=== PATIENT | female | born 1995 | race African-American/Black ===

== ENCOUNTER 2016-09-25 23:56 | Emergency (ER) | payer OTHER ==
[~2016-09-25] VITALS: Ht 170.2 cm; Wt 86.9 kg
[2016-09-25 23:57] VITALS: BP 134/75
[2016-09-26] MEDS ORDERED: PRENTAB40 PO (00:55)
--- NOTE | 2016-09-26 05:20 | REPUSA ---
CLINICAL HISTORY: Vaginal bleeding. TECHNIQUE: Transabdominal ultrasound of the pelvis was performed. FINDINGS: The uterus is anteverted. A pole is identified with crown-rump length of 0.3 cm, which corresponds to a gestational age o f 5 weeks and 4 days. A yolk sac is noted. heart motion is demonstrated, with a rate of 115 beats per minute. KELSEY is estimated at 05/25/17. Both ovaries are identified without adnexal mass or pelvic fluid collection. IMPRESSION: Single live IUP dated at 5 w 4 d. No abnormalities noted.
== END 2016-09-26 06:15 | disposition home or self-care (01) ==
LOC: M ED 23:56
DX: O20.0 Threatened abortion (principal); Z3A.01 Less than 8 weeks gestation of pregnancy

== ENCOUNTER 2016-10-03 17:01 | Emergency (ER) | payer OTHER ==
[~2016-10-03] VITALS: Ht 170.2 cm; Wt 77.3 kg
[~2016-10-03 17:01] MED LIST: PRENTAB40 PO
--- NOTE | 2016-10-03 20:20 | REPUSA ---
Clinical history: vaginal spotting. Findings: Real-time transabdominal and transvaginal ultrasound images of the pelvis were obtained. Th ere is a single intrauterine gestation. The crown rump length measures 0.7 cm. There is no evidence o f a subchorionic hemorrhage. heart rate measures 123 bpm. An anteverted uterus is noted, and de monstrates normal echotexture and echogenicity. The right ovary measures 2.4 x 2.9 x 2.7 cm. The lef t ovary measures 2.5 x 2.8 x 2.7 cm. No adnexal masses are seen. Color Doppler flow is seen within b oth ovaries. There is no evidence of free fluid. Impression: 1. Single live intrauterine measuring 6 weeks 4 days, with estimated due date of April 292017. 2. No other gross abnormalities.
[2016-10-03 21:20] VITALS: BP 128/70
== END 2016-10-03 21:24 | disposition home or self-care (01) ==
LOC: M ED 17:01
DX: O20.9 Hemorrhage in early pregnancy, unspecified (principal); Z3A.01 Less than 8 weeks gestation of pregnancy

== ENCOUNTER 2017-02-20 10:41 | Outpatient (CLI) | payer OTHER ==
[~2017-02-20] VITALS: Ht 170.2 cm; Wt 97.0 kg
[2017-02-20 11:01] VITALS: BP 119/64
--- NOTE | 2017-02-20 11:54 | HPE ---
DATE OF ADMISSION: 02/20/2017 This lady is a 21-year-old 2, para 0, abortio 41, LMP 08/09/2016, EDC 05/16/2017 at 27 and 6 of gestation with no movement for 3 days. Risk factors, she is Rh negative, GBS positive in urine. Gonorrhea her review was negative. Chlamydia was positive. Test of cure is not available and she has chaptering 8 out. PAST HISTORY: April 2015 at 8 weeks, spontaneous . Labs show O negative, HIV negative, hepatitis negative, RPR negative, rubella immune. Varicella immune. Urine was group B streptococcus (GBS) positive. Gonorrhea was negative. Chlamydia was positive. CF declined. EXAMINATION: No distress. Symphysis fundus height is 28, vertex, category 1 with moderate variability and heart rate 140. No decelerations. No contractions. No vaginal loss or bleeding. Temperature is 98.7, pulse 88, respirations 18, and blood pressure is 119/64. Patient is unable to void. She is normocephalic, atraumatic. Neck: Full range of motion. Pupils equal and reactive to light. Distal pulses symmetric. No evidence of deep venous thrombosis (DVT), pulmonary embolus (PE, or superficial phlebitis. No wheezes or rhonchi. Chest is clear bilaterally to bases. No costovertebral angle (CVA) tenderness. Uterus is nontender. Four quadrant bowel sounds are noted. No rashes, lesions, or pruritus. No arthralgia, myalgia. No complaints of cough, wheeze, shortness of breath, or dyspnea on exertion. No chest pain. Not bleeding. Neuro complete. No incontinency, urgency, or frequency. No nausea, vomiting, diarrhea, or constipation. Patient has not done her 28-week labs yet. No [employer] history. PAST MEDICAL: Unremarkable. SURGERY: Unremarkable. No family history. Does not smoke, drink, abuse drugs. She is to a soldier, and there is no domestic violence. In summary, we have a 27 and 6 with decreased movements, confirmed good accelerations on a good strip, with an NST positive. Precautions were given. 28-week labs were emphasized that she should do them, and she responded in the affirmative, and she is discharged to followup in the office in 2-weeks' time. She was discharged undelivered.
== END 2017-02-20 12:05 | disposition home or self-care (01) ==
LOC: M LDO 10:41
PROVIDERS: ATTEND Obstetrics & Gynecology
DX: O36.8120 Decreased fetal movements, second trimester, not applicable or unspecified (principal); Z3A.27 27 weeks gestation of pregnancy; O98.312 Other infections with a predominantly sexual mode of transmission complicating pregnancy, second trimester

== ENCOUNTER 2017-03-20 11:25 | Emergency (ER) | payer OTHER ==
[~2017-03-20] VITALS: Ht 170.2 cm; Wt 99.7 kg
[2017-03-20 11:26] VITALS: BP 132/67
[2017-03-20] MEDS ORDERED: KEFL500C17 PO (13:27)
== END 2017-03-20 13:31 | disposition home or self-care (01) ==
LOC: M ED 11:25
DX: O99.89 Other specified diseases and conditions complicating pregnancy, childbirth and the puerperium (principal); N89.9 Noninflammatory disorder of vagina, unspecified; Z3A.31 31 weeks gestation of pregnancy

== ENCOUNTER 2017-05-20 01:08 | Outpatient (CLI) | payer OTHER | END 2017-05-20 04:00 | disposition home or self-care (01) | LOC: M LDO 01:08 | DX: O47.1 False labor at or after 37 completed weeks of gestation (principal); Z3A.40 40 weeks gestation of pregnancy | CPT/HCPCS: 59025 ==

== ENCOUNTER 2017-05-21 04:58 | Inpatient (IN) | payer OTHER ==
[2017-05-21] MEDS: LR 1,000 ML IV ×2 (05:34→11:24)
[2017-05-21] MEDS: PENICILLIN G POTASSIUM IV 5 MU in D5W MINI-BAG PLUS 100 ML IV (05:34)
[2017-05-21 06:26] LABS: HEMATOCRIT 40.4 % (36.0-47.0); HEMOGLOBIN 13.4 g/dl (12.0-16.0); MEAN CORPUSCULAR HEMOGLOBIN 31.6 pg (27.0-33.0); MEAN CORPUSCULAR HGB CONC 33.2 g/dl (32.0-36.5); MEAN CORPUSCULAR VOLUME 95.3 fl (80.0-96.0); PLATELET COUNT, AUTOMATED 275 10^3/uL (150-450); RED BLOOD COUNT 4.24 10^6/uL (4.00-5.40); RED CELL DISTRIBUTION WIDTH 13.7 % (11.5-14.5); WHITE BLOOD COUNT 11.4 10^3/uL (4.0-10.0)
[2017-05-21] MEDS: OXYTOCIN DRIP 30 UNITS in APPROPRIATE DILUENT 1 EA IV ×3 (06:30→23:29)
[2017-05-21] MEDS: PENICILLIN G POTASSIUM IV 2.5 MU in APPROPRIATE DILUENT 1 EA IV ×3 (10:32→18:23)
[2017-05-21] MEDS: PROMETHAZINE INJ 25 MG/ML VIAL (J2550) IV (17:23)
[2017-05-21] MEDS: BUTORPHANOL 2 MG/ML INJ (J0595) IV (17:25)
[2017-05-21] MEDS: LACTATED RINGER'S 1000 ML IV (19:04)
[2017-05-21] MEDS ORDERED: FENTANYL 2MCG/ML ROPIVACAINE 0.2% IN 0.9% NACL 200ML IVBAG As Ordered (19:15)
[2017-05-21] MEDS ORDERED: EPIDURAL/PCA KEYS XX (20:10)
[2017-05-21] MEDS ORDERED: REFRIGERATOR IV KEYS XX (20:10)
[2017-05-21] MEDS ORDERED: NALOXONE INJ 0.4 MG/1 ML VIAL (J2310) IV (20:10)
[2017-05-21] MEDS ORDERED: ONDANSETRON 4MG/2ML VIAL (J2405) IV ×2 (20:10→23:00)
[2017-05-21] MEDS ORDERED: ePHEDrine SULFATE 25 MG/5 ML(5MG/ML) SYRINGE IV (20:10)
[2017-05-21] MEDS ORDERED: EPIDURAL COMMENT XX (20:10)
[2017-05-21] MEDS: FENTANYL/ROPIVACAINE/NACL BAG 200 ML EPIDURAL (20:10)
[2017-05-21] MEDS ORDERED: diphenhydrAMINE INJ 50MG/ML VIAL (J1200) IV (20:10)
[2017-05-21] MEDS ORDERED: LACTATED RINGER'S 1000 ML IV (20:10)
[2017-05-21] MEDS ORDERED: OXYTOCIN 30 UNITS IN 0.9% NaCl 500ML IV BAG (J2590) As Ordered (22:45)
[2017-05-21] MEDS: miSOPROStol 200 MCG TAB (S0191) PR (23:00)
[2017-05-21] MEDS ORDERED: IBUPROFEN 800 MG TAB PO (23:00)
[2017-05-21] MEDS ORDERED: ANUSOL HC CREAM 30GM TOP (23:00)
[2017-05-21] MEDS ORDERED: DIBUCAINE 1% OINTMENT 30GM TOP (23:00)
[2017-05-21] MEDS ORDERED: DOCUSATE SODIUM 100 MG CAP PO (23:00)
[2017-05-21] MEDS ORDERED: MOM 30ML SUSPENSION UDC PO (23:00)
[2017-05-21] MEDS ORDERED: PROMETHAZINE 25 MG TAB PO (23:00)
[2017-05-22] MEDS: LR 1,000 ML IV ×2 (07:08)
[2017-05-22] MEDS: PENICILLIN G POTASSIUM IV 2.5 MU in APPROPRIATE DILUENT 1 EA IV (07:09)
[2017-05-22] MEDS: PRENATAL VITAMINS CHEWABLE TABLET PO (07:53)
[2017-05-22 10:41] LABS: FETAL SCREEN PROF. 1 1
[2017-05-22] MEDS: RHOGAM 300 MCG (1500 IU) INJ (J2790) IM (10:55)
[2017-05-23] MEDS: ACETAMINOPHEN 500 MG TAB PO (00:27)
[2017-05-23] MEDS: PRENATAL VITAMINS CHEWABLE TABLET PO (08:01)
== END 2017-05-23 10:30 | disposition home or self-care (01) | DRG 775 ==
LOC: M LDO 04:58 → M OBS 23:45 → M LDI 05:32
PROVIDERS: Obstetrics & Gynecology
PROC: 10E0XZZ Delivery of Products of Conception, External Approach (ICD-10-PCS; principal; 2017-05-21)
PROC: 0UQMXZZ Repair Vulva, External Approach (ICD-10-PCS; 2017-05-21)
PROC: 0HQ9XZZ Repair Perineum Skin, External Approach (ICD-10-PCS; 2017-05-21)
DX: O42.02 Full-term premature rupture of membranes, onset of labor within 24 hours of rupture (principal); O48.0 Post-term pregnancy; Z3A.40 40 weeks gestation of pregnancy; O99.824 Streptococcus B carrier state complicating childbirth; O71.82 Other specified trauma to perineum and vulva; O70.0 First degree perineal laceration during delivery; O77.0 Labor and delivery complicated by meconium in amniotic fluid; Z37.0 Single live birth

== ENCOUNTER 2017-06-01 19:53 | Emergency (ER) | payer OTHER ==
[2017-06-01] MEDS ORDERED: CLINDAMYCIN 150 MG CAP PO (22:00)
== END 2017-06-01 21:57 | disposition home or self-care (01) ==
LOC: M ED 19:53
DX: O90.89 Other complications of the puerperium, not elsewhere classified (principal)
CPT/HCPCS: 99283

== ENCOUNTER 2017-12-23 22:31 | Emergency (ER) | payer OTHER ==
[2017-12-23] MEDS: BACTRIM 160MG/800MG DS TAB PO (23:45)
[2017-12-23] MEDS: LIDOCAINE 2% MDV 20 ML VIAL SC (23:45)
== END 2017-12-24 00:08 | disposition home or self-care (01) ==
LOC: M ED 12-24 00:08
DX: L02.31 Cutaneous abscess of buttock (principal)
CPT/HCPCS: 87205